=== PATIENT | female | born 2000 | race Asian ===

== ENCOUNTER 2022-07-17 05:45 | Emergency (ER) | payer OTHER ==
[~2022-07-17] VITALS: Ht 154.9 cm; Wt 74.8 kg
[2022-07-17 06:08] VITALS: BP 115/77
--- NOTE | 2022-07-17 06:08 | NUR ---
BIBSELF FROM HOME C/O LEFT EAR ACHE & HEARING LOSS SINCE MONDAY. A/OX4. TOLERATING R/A WELL WITH NO RESP DISTRESS. AMBULATORY WITH STEADY GAIT. SAFETY MEASURES IN PLACE.
--- NOTE | 2022-07-17 06:31 | NUR ---
DR. KRIS HORAN AT PT'S BEDSIDE FOR EVAL
[2022-07-17] MEDS ORDERED: IBUPROFEN 600 MG TABLET ONE ×2 (06:41)
[2022-07-17] MEDS ORDERED: AMOX-430 PO (06:47)
[2022-07-17] MEDS ORDERED: CIPR10DR LEFT EAR (06:47)
[2022-07-17] MEDS ORDERED: IBUP-1955 PO (06:47)
[2022-07-17] MEDS ORDERED: IBUPROFEN 600 MG TABLET PO ONE (07:00)
--- NOTE | 2022-07-17 07:00 | NUR ---
Patient discharged to home in stable condition. RX Written and verbal after care instructions given. Patient verbalizes understanding of instruction. PT ambulatory with a steady gait
== END 2022-07-17 07:00 | disposition home or self-care (01) ==
LOC: ER 05:53
DX: H92.02 Otalgia, left ear (principal); H66.92 Otitis media, unspecified, left ear; H60.92 Unspecified otitis externa, left ear; Z60.2 Problems related to living alone

== ENCOUNTER 2022-07-19 15:57 | Emergency (ER) | payer OTHER ==
[~2022-07-19] VITALS: Ht 154.9 cm; Wt 74.8 kg
[~2022-07-19 15:57] MED LIST: AMOX-430 PO; CIPR10DR LEFT EAR; IBUP-1955 PO
[2022-07-19 16:24] VITALS: BP 138/79
--- NOTE | 2022-07-19 17:15 | NUR ---
Patient discharged to home in stable condition. Written and verbal after care instructions given. Patient verbalizes understanding of instruction.
== END 2022-07-19 17:16 | disposition home or self-care (01) ==
LOC: ER 16:05
DX: H60.92 Unspecified otitis externa, left ear (principal); H66.92 Otitis media, unspecified, left ear; Z60.2 Problems related to living alone; Z79.899 Other long term (current) drug therapy

== ENCOUNTER 2023-05-29 13:50 | Emergency (ER) | payer OTHER ==
[~2023-05-29] VITALS: Ht 154.9 cm; Wt 68.5 kg
[2023-05-29] MEDS ORDERED: ACETAMINOPHEN 325 MG TABLET PO ONE (14:30)
[2023-05-29] MEDS ORDERED: IV NS 0.9% 1,000 ML IV ONE (14:30)
[2023-05-29] MEDS ORDERED: KETOROLAC TROMETHAMINE INJ 30 MG/ML VIAL IV ONE (14:30)
[2023-05-29] MEDS ORDERED: ACETAMINOPHEN 325 MG TABLET ONE ×2 (14:34→14:48)
[2023-05-29 14:56] LABS: BASOPHILS % (AUTO) 0.1 % (0.0-2.0); HEMATOCRIT 36 % (33-45); HEMOGLOBIN 11.8 g/dL (11.5-14.8); LYMPHOCYTES # (AUTO) 0.7 K/uL (0.8-4.8); LYMPHOCYTES % (AUTO) 4.4 % (20.0-44.0); MEAN CORPUSCULAR HEMOGLOBIN 29 PG (26.0-33.0); MEAN CORPUSCULAR HGB CONC 33 g/dl (31.0-36.0); MEAN CORPUSCULAR VOLUME 88 fL (82-100); MONOCYTES # (AUTO) 1.2 K/uL (0.1-1.30); MONOCYTES % (AUTO) 7.3 % (2.0-12.0); NEUTROPHILS # (AUTO) 14.5 K/uL (1.8-8.9); NEUTROPHILS % (AUTO) 88.2 % (43.0-81.0); PLATELET COUNT (AUTO) 246 K/uL (150-450); RED BLOOD CELL COUNT(AUTO) 4.11 MIL/uL (4.0-5.2); RED CELL DISTRIBUTION WIDTH 12.5 % (11.5-15.0); WHITE BLOOD COUNT (AUTO) 16.4 K/uL (4.3-11.0)
[2023-05-29 15:02] LABS: CREATININE 1.4 mg/dL (0.6-1.3); POTASSIUM 3.6 mmol/L (3.5-5.1)
[2023-05-29 16:43] LABS: APPEARANCE,URINE SLIGHTLY CLOUDY (CLEAR); BILIRUBIN,URINE 1+ (NEGATIVE); BLOOD, URINE 2+ Ery/uL (NEGATIVE); COLOR,URINE YELLOW (YELLOW); KETONES,URINE NEGATIVE (NEGATIVE); LEUKOCYTE ESTERASE ,URINE 3+ (NEGATIVE); NITRITE, URINE NEGATIVE (NEGATIVE); PROTEIN,URINE 2+ mg/dl (NEGATIVE); UGLUCOSE NEGATIVE (NEGATIVE)
[2023-05-29 16:46] LABS: PREGNANCY TEST URINE QUAL NEGATIVE (NEGATIVE)
[2023-05-29] MEDS ORDERED: KETOROLAC TROMETHAMINE INJ 30 MG/ML VIAL ONE (16:49)
[2023-05-29 17:05] LABS: ADD URINE CULTURE YES; BACTERIA,URINE 3+ /HPF (None Seen); COARSE GRANULAR CASTS,URINE Few /LPF (None Seen); RBC,URINE 21-50 /HPF (0-2); SQUAMOUS EPITHELIAL CELL,UR 0-2 /HPF (None Seen); WBC,URINE 51-80 /HPF (0-3)
[2023-05-29] MEDS ORDERED: CEPH500C2 PO (17:24)
[2023-05-29] MEDS ORDERED: TYL2T PO (17:24)
[2023-05-29 17:36] VITALS: BP 97/59; TEMP 103.1; O2SAT 97
== END 2023-05-29 17:34 | disposition home or self-care (01) ==
LOC: ER 13:53
DX: N39.0 Urinary tract infection, site not specified (principal); Z79.899 Other long term (current) drug therapy; Z20.822 Contact with and (suspected) exposure to COVID-19; Z60.2 Problems related to living alone
CPT/HCPCS: 99285; 96374; 76705; 71045; 96361; 87426; 85025; 80048; 87086; 83605; 84703; 81001; 36415; 84702; J1885; J7030; C9803

== ENCOUNTER 2023-06-01 12:23 | Emergency (ER) | payer OTHER ==
[~2023-06-01] VITALS: Ht 157.5 cm; Wt 69.4 kg
[~2023-06-01 12:23] MED LIST changes: +CEPH500C2 PO; +TYL2T PO
[2023-06-01] MEDS ORDERED: ONDANSETRON HCL 4 MG/5 ML SOLUTION PO ONE (13:30)
[2023-06-01] MEDS ORDERED: IV NS 0.9% 1,000 ML BAG IV ONE (13:30)
[2023-06-01] MEDS ORDERED: CEFTRIAXONE 1GM BAG (ER ONLY) 50 ML IV ONE ×2 (13:30→13:36)
[2023-06-01] MEDS ORDERED: ONDANSETRON 4 MG TAB.RAPDIS ONE (13:37)
[2023-06-01] MEDS ORDERED: ONDA4TAB5 PO (15:09)
[2023-06-01 15:34] VITALS: BP 110/70; TEMP 98.6; O2SAT 99
== END 2023-06-01 15:35 | disposition home or self-care (01) ==
LOC: ER 12:27
DX: N39.0 Urinary tract infection, site not specified (principal); R11.2 Nausea with vomiting, unspecified; Z79.899 Other long term (current) drug therapy; Z60.2 Problems related to living alone
CPT/HCPCS: 99284; 96365; J7030; Q0162; J0696

== ENCOUNTER 2025-02-18 18:36 | Emergency (ER) | payer OTHER ==
[~2025-02-18] VITALS: Ht 157.5 cm; Wt 77.1 kg
[~2025-02-18 18:36] MED LIST changes: +ONDA4TAB5 PO
[2025-02-18] MEDS: IV NS 0.9% 1,000 ML BAG IV ONE (20:05)
[2025-02-18 20:18] LABS: BASOPHILS % (AUTO) 0.2 % (0.0-2.0); HEMATOCRIT 40 % (33-45); HEMOGLOBIN 13.3 g/dL (11.5-14.8); LYMPHOCYTES # (AUTO) 1.3 K/uL (0.8-4.8); LYMPHOCYTES % (AUTO) 8.3 % (20.0-44.0); MEAN CORPUSCULAR HEMOGLOBIN 29 PG (26.0-33.0); MEAN CORPUSCULAR HGB CONC 33 g/dl (31.0-36.0); MEAN CORPUSCULAR VOLUME 88 fL (82-100); MONOCYTES # (AUTO) 0.8 K/uL (0.1-1.30); MONOCYTES % (AUTO) 5.2 % (2.0-12.0); NEUTROPHILS # (AUTO) 13.3 K/uL (1.8-8.9); NEUTROPHILS % (AUTO) 86.3 % (43.0-81.0); PLATELET COUNT (AUTO) 329 K/uL (150-450); RED BLOOD CELL COUNT(AUTO) 4.58 MIL/uL (4.0-5.2); RED CELL DISTRIBUTION WIDTH 12.9 % (11.5-15.0); WHITE BLOOD COUNT (AUTO) 15.4 K/uL (4.3-11.0)
[2025-02-18 20:26] LABS: CREATININE 1.1 mg/dL (0.6-1.3); POTASSIUM 3.3 mmol/L (3.5-5.1)
[2025-02-18 20:31] LABS: INR 1.01 (0.91-1.10); PARTIAL THROMBOPLASTIN TIME 29.2 SEC (24.3-34.3); PROTHROMBIN TIME 10.4 SECS (9.2-11.1)
[2025-02-18 20:32] LABS: ALBUMIN 3.5 g/dL (3.4-5.0); BILIRUBIN,DIRECT 0.4 mg/dL (0.0-0.2); BILIRUBIN,TOTAL 1.2 mg/dL (0.2-1.0); TOTAL PROTEIN, SERUM 8.9 g/dL (6.4-8.2)
[2025-02-18 20:35] LABS: LACTIC ACID 1.1 mmol/L (0.4-2.0)
[2025-02-18] MEDS ORDERED: CEFEPIME 1 GM VIAL ONE (20:52)
[2025-02-18] MEDS: CEFEPIME 1 GM in IV D5W 50 ML IV ONE (21:01)
[2025-02-18] MEDS: ACETAMINOPHEN ES 500 MG TABLET PO ONE (21:35)
[2025-02-18 21:39] LABS: APPEARANCE,URINE CLEAR (CLEAR); BILIRUBIN,URINE SMALL (NEGATIVE); BLOOD, URINE Small Ery/uL (NEGATIVE); COLOR,URINE YELLOW (YELLOW); KETONES,URINE 40 mg/dL (NEGATIVE); LEUKOCYTE ESTERASE ,URINE Trace (NEGATIVE); PROTEIN,URINE 100 mg/dl (NEGATIVE); UGLUCOSE Negative (NEGATIVE)
[2025-02-18 21:40] LABS: NITRITE, URINE POSITIVE (NEGATIVE)
[2025-02-18 21:41] LABS: PREGNANCY TEST URINE QUAL NEGATIVE (NEGATIVE)
[2025-02-18 21:42] LABS: ADD URINE CULTURE YES; BACTERIA,URINE 1+ /HPF (None Seen); SQUAMOUS EPITHELIAL CELL,UR Moderate /HPF (None Seen)
[2025-02-18 21:43] LABS: HYALINE CASTS, URINE Rare /LPF (None Seen); URINE AMORPHOUS PHOSPHATES Few /HPF (None Seen)
[2025-02-18] MEDS ORDERED: CEFP200T14 PO (22:42)
[2025-02-18 23:13] VITALS: BP 105/66; TEMP 98.5; O2SAT 94
== END 2025-02-18 23:13 | disposition home or self-care (01) ==
LOC: ER 18:39
DX: A41.9 Sepsis, unspecified organism (principal); N39.0 Urinary tract infection, site not specified; R51.9 Headache, unspecified; M54.50 Low back pain, unspecified; R00.2 Palpitations; Z60.2 Problems related to living alone; Z79.899 Other long term (current) drug therapy
CPT/HCPCS: 99291; 96365; 96361; 93005; 71045; 84145; 85025; 80048; 87040 ×2; 87086; 83605; 80076; 84703; 81001; 36415; 85730; J7060 ×2; J7030; J0692 ×2